=== PATIENT | female | born 1990 | race American Indian/Alaskan Native ===

== ENCOUNTER 2017-07-02 08:20 | Emergency (ER) | payer OTHER ==
[2017-07-02 08:26] VITALS: BP 145/62
[2017-07-02] MEDS ORDERED: XYLOCAINE 1% 20 mL INFILTRATI ONE (10:12)
--- NOTE | 2017-07-02 10:15 | Emergency Department Report ---
Chief Complaint: Earache Stated Complaint: OBJECT IN EAR Time Seen by Provider: 07/02/17 09:52 - HPI History of Present Illness: bug in the legt ear since last night - ROS Review of Systems: see hpi - Exam Vital Signs: Vital Signs 07/02/17 08:24 Temperature 98.3 F Pulse Rate 72 Respiratory 20 Rate Blood Pressure 145/62 O2 Sat by Pulse 99 Oximetry MSE screening note: Focused history and physical exam performed. Due to findings the following was ordered: moved to for treatment ED Disposition for MSE Condition: Stable Referrals: PRIMARY CARE, [Primary Care Provider] - 3-5 Days
--- NOTE | 2017-07-02 11:00 | Emergency Department Report ---
HPI - General Chief Complaint: Earache Time Seen by Provider: 07/02/17 09:52 - HPI HPI: Is a 27-year-old female who presents complaining offering but in the left ear times one day. Patient's initial at this morning and felt something moving in her left ear. States she put some peroxide in her ear. Denies ear trauma, putting any foreign objects in the ear. Denies hearing loss out of that ear ED Past Medical Hx - Past Medical History Previous Medical History?: No - Surgical History Past Surgical History?: No - Social History Smoking Status: Current Some Day Smoker Substance Use Type: Alcohol, Marijuana - Medications Home Medications: Home Medications Medication Instructions Recorded Confirmed Last Taken Type Carbamide Peroxide [Ear Wax 1 - 2 drops OT BID #15 ml 07/02/17 Unknown Rx Removal] ED Review of Systems ROS: Stated complaint: OBJECT IN EAR Other details as noted in HPI Constitutional: denies: chills, fever Eyes: denies: eye pain, eye discharge, vision change ENT: denies: ear pain, throat pain Respiratory: denies: cough, shortness of breath, wheezing Cardiovascular: denies: chest pain, palpitations Endocrine: no symptoms reported Gastrointestinal: denies: abdominal pain, nausea, diarrhea Genitourinary: denies: urgency, dysuria, discharge Musculoskeletal: denies: back pain, joint swelling, arthralgia Skin: denies: rash, lesions Neurological: denies: headache, weakness, paresthesias Psychiatric: denies: anxiety, depression Hematological/Lymphatic: denies: easy bleeding, easy bruising Physical Exam - Physical Exam Vital Signs: Vital Signs 07/02/17 08:24 Temperature 98.3 F Pulse Rate 72 Respiratory 20 Rate Blood Pressure 145/62 O2 Sat by Pulse 99 Oximetry Physical Exam: GENERAL: Alert and oriented x3, no apparent distress, Normal Gait, atraumatic. HEAD: Head is normocephalic and a-traumatic. EYES: Extra ocular muscles are intact. Pupils are equal, round, and reactive to light and accommodation. EARS: symetrical, atraumatic, non tender, ear canal clear and moderate cerumen, tympanic membrance non inflamed. Small-sized insect visualized in the left ear close tympanic membrane. Gross auditory nml bilaterally. NOSE: Nose symetrical, Nontender,Nares appeared normal. MOUTH:Mouth is well hydrated and without lesions. Tonsils nonerythematous or swollen, Uvula midline, Tongue not elevated. Mucous membranes are moist. Posterior pharynx clear, no exudate or lesions. Patent airways. NECK: Supple. Non edematous, No lymphadenopathy or thyromegaly. SKIN: Warm and dry, No lesions, No ulceration or induration present. ED Course Vital Signs 07/02/17 08:24 Temperature 98.3 F Pulse Rate 72 Respiratory 20 Rate Blood Pressure 145/62 O2 Sat by Pulse 99 Oximetry ED Medical Decision Making - Medical Decision Making 27-year-old female sensitive foreign body in her left ear ED course: 2 mL of lidocaine and placed in left ear. Insect removed with alligator clips. Ears was flushed with 80 mL of normal saline. Tympanic membrane visualized after washing. She tolerated procedure well I discussed the patient she'll need some earwax removal to get wax out of the ears. I explained the patient to apply 2 drops in the ear twice a day. Assessment normal, no signs are normal , patient is in no acute distress. Scars with her to follow up with primary care physician. Critical care attestation.: If time is entered above; I have spent that time in minutes in the direct care of this critically ill patient, excluding procedure time. ED Disposition Clinical Impression: Foreign body Ear foreign body Qualifiers: Encounter type: initial encounter Laterality: left Qualified Code(s): T16.2XXA - Foreign body in left ear, initial encounter Disposition: TO HOME OR SELFCARE Is pt being admited?: No Does the pt Need Aspirin: No Condition: Stable Instructions: Ear Foreign Body (ED) Additional Instructions: Make sure to follow up with the primary care physician as discussed. Take all your medications as you've been prescribed. If you have any worsening symptoms or develop new symptoms please return to ED immediately. Prescriptions: Carbamide Peroxide [Ear Wax Removal] 1 - 2 drops OT BID #15 ml Referrals: PRIMARY MD BRITANY [Primary Care Provider] - 3-5 Days FRANCISCA CHIRINOS MD [Staff Physician] - 3-5 Days [facility] [Outside] - 3-5 Days [facility] [Outside] - 3-5 Days Forms: Accompanied Note, Work/School Release Form(ED) Time of Disposition: 11:22
== END 2017-07-02 11:36 | disposition home or self-care (01) ==
LOC: ED 08:20
DX: T16.2XXA Foreign body in left ear, initial encounter (principal); F17.200 Nicotine dependence, unspecified, uncomplicated; F12.10 Cannabis abuse, uncomplicated; X58.XXXA Exposure to other specified factors, initial encounter; Y93.89 Activity, other specified; Y92.89 Other specified places as the place of occurrence of the external cause; Y99.8 Other external cause status
CPT/HCPCS: 99282